=== PATIENT | female | born 1935 ===

== ENCOUNTER 2024-05-11 13:25 | Emergency (ER) | payer MEDICARE, BC ==
[2024-05-11 14:05] LABS: BASOPHILS ABSOLUTE AUTO 0.03 K/uL (0.00-0.20); BASOPHILS PERCENT AUTO 0.1 % (0.0-2.0); HEMATOCRIT 52.7 % (34.0-46.0); HEMOGLOBIN 16.7 g/dL (11.7-15.5); IMMATURE GRAN ABSOLUTE AUTO 0.08 10^3/uL (0.00-0.04); IMMATURE GRAN PERCENT AUTO 0.3 % (0.0-0.4); LYMPHOCYTES ABSOLUTE AUTO 0.78 K/uL (0.50-3.50); LYMPHOCYTES PERCENT AUTO 3.4 % (10.0-50.0); MEAN CORPUSCULAR HGB CONC 31.7 g/dL (31.7-36.0); MEAN CORPUSCULAR VOLUME 97.8 fL (84.0-98.0); MONOCYTES ABSOLUTE AUTO 1.22 K/uL (0.00-1.00); MONOCYTES PERCENT AUTO 5.3 % (2.0-14.0); NEUTROPHILS ABSOLUTE AUTO 20.86 K/uL (1.40-7.00); NEUTROPHILS PERCENT AUTO 90.9 % (45.0-80.0); PLATELET COUNT,PLT 345 K/uL (150-350); RED BLOOD CELL COUNT 5.39 M/uL (3.77-5.09)
[2024-05-11] MEDS: Ondansetron 4 MG/2 ML SDV IVPUSH ONE (14:07)
[2024-05-11] MEDS: Sodium Chloride 0.9% 10 ML Syringe FLUSH PRN (14:07)
[2024-05-11] MEDS: Ondansetron 4 MG/2 ML SDV ONE (14:08)
[2024-05-11] MEDS: Lactated Ringers 1,000 ML IV ONE (14:09)
[2024-05-11 14:21] LABS: INR 1.1 (0.9-1.1); PROTHROMBIN TIME 10.7 SEC (9.0-11.1)
[2024-05-11 14:33] LABS: ALANINE AMINOTRANSFERASE,ALT 34 U/L (12-78); ALBUMIN 3.5 g/dL (3.4-5.0); ALKALINE PHOSPHATASE 142 IU/L (46-116); ASPARTATE AMNIOTRANSFERASE,AST 34 U/L (15-37); BILIRUBIN TOTAL 0.5 mg/dL (0.2-1.0); BLOOD UREA NITROGEN,BUN 67 mg/dL (7-18); CALCIUM 10.5 mg/dL (8.5-10.1); CHLORIDE,CL 108 mmol/L (98-107); CREATININE 2.19 mg/dL (0.51-1.17); GLUCOSE RANDOM 356 mg/dL (70-99); LIPASE 50 U/L (16-77); MAGNESIUM 2.2 mg/dL (1.8-2.4); POTASSIUM,K 5.4 mmol/L (3.5-5.1); PRO B-TYPE NATRIUR PEPT,BNPPRO 3683 pg/mL (0-125); PROTEIN TOTAL,TP 8.4 g/dL (6.4-8.2); SODIUM,NA 150 mmol/L (136-145)
[2024-05-11 14:39] LABS: ANION GAP 22.4 meq/L (7-15); ESTIMATED GFR 21 mL/min (>=60)
[2024-05-11 15:05] LABS: LACTIC ACID 7.7 mmol/L (0.4-2.0)
[2024-05-11 15:06] LABS: APPEARANCE,URINE SLIGHTLY CLOUDY (CLEAR); COLOR,URINE LIGHT YELLOW (YELLOW)
[2024-05-11 15:08] LABS: GLUCOSE,URINE >=1000 mg/dL (NEGATIVE); KETONES,URINE NEGATIVE (NEGATIVE); PROTEIN,URINE 30 mg/dL (NEGATIVE)
[2024-05-11 15:09] LABS: BILIRUBIN,URINE NEGATIVE (NEGATIVE); NITRITE,URINE NEGATIVE (NEGATIVE); OCCULT BLOOD,URINE MODERATE (NEGATIVE); UROBILINOGEN,URINE 0.2 E.U./dL (0.2-1.0)
[2024-05-11 15:10] LABS: LEUKOCYTE ESTERASE,URINE MODERATE (NEGATIVE); RBC,URINE 0-5 /HPF; WBC,URINE >100 /HPF
[2024-05-11 15:11] LABS: BACTERIA,URINE MANY /HPF (NONE TO FEW); EPITHELIAL CELLS,URINE NOT SEEN /LPF; YEAST,URINE MODERATE /HPF (NEGATIVE)
[2024-05-11] MEDS ORDERED: Morphine 4 MG/ML Syringe IVPUSH PRN ×2 (15:42→15:48)
[2024-05-11] MEDS: LORazepam 2 MG/ML SDV IVPUSH ONE ×2 (16:19→18:53)
== END 2024-05-11 16:45 | disposition home or self-care (01) ==
LOC: LL.ED 13:25 → MERGE 13:25 → LL.ED 16:45
DX: A41.9 Sepsis, unspecified organism (principal); N17.9 Acute kidney failure, unspecified; R65.20 Severe sepsis without septic shock; N39.0 Urinary tract infection, site not specified; I50.9 Heart failure, unspecified; Z51.5 Encounter for palliative care
CPT/HCPCS: 36415; 71045; 74018; 80053; 81001; 83605; 83690; 83735; 83880; 84484; 85025; 85610; 87428-QW; 93005; 93010; 96374; 99284; 99284-25; J2405; J7120